=== PATIENT | male | born 1995 | race Caucasian/White ===

== ENCOUNTER 2016-07-14 20:33 | Emergency (ER) | payer OTHER ==
[~2016-07-14] VITALS: Ht 167.6 cm; Wt 77.7 kg
[2016-07-14 20:46] VITALS: TEMP 36.8; Ht 167.6 cm; Wt 77.7 kg
[2016-07-14] MEDS ORDERED: IBUPROFEN 800 MG TAB PO ONE (21:00)
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
[2016-07-14] MEDS ORDERED: HYDR-5688 PO (22:05)
[2016-07-14 22:21] VITALS: BP 118/72; PULSE 70; O2SAT 98
== END 2016-07-14 22:23 | disposition home or self-care (01) ==
LOC: C.EDB 20:34 → C.EDD 22:23
DX: S42.021A Displaced fracture of shaft of right clavicle, initial encounter for closed fracture (principal); V28.0XXA Motorcycle driver injured in noncollision transport accident in nontraffic accident, initial encounter